=== PATIENT | female | born 1995 | race Caucasian/White ===

== ENCOUNTER 2016-10-30 16:58 | Emergency (ER) | payer SELFPAY ==
--- NOTE | 2016-10-30 17:07 | NUR ---
PATIENT LEFT WITHOUT BEING SEEN BY DR. MULLER. NO FURTHER CARE PROVIDED FOR PATIENT.
== END 2016-10-30 17:07 | disposition left against medical advice (07) ==
LOC: MED 16:59
DX: R12 Heartburn (principal); Z53.21 Procedure and treatment not carried out due to patient leaving prior to being seen by health care provider